=== PATIENT | male | born 1985 | race Two or more races ===

== ENCOUNTER → 2024-10-06 | Outpatient (CLI) | payer OTHER, MEDICAID ==
[~2024-10-06] VITALS: Ht 182.9 cm; Wt 125.6 kg
[2024-10-06] VITALS (7 sets, daily range): BP systolic 127–138; BP diastolic 92–106; PULSE 77–91; RESP 15–20; TEMP 98; O2SAT 95–100
[~2024-10-06] MED LIST: AMIO200T33 PO; AMLO1TAB22 PO; ATOR-507 PO; CARV6.2551 PO; HEPARIN SODIUM (PORCINE) 5000 UNITS/ML 1ML VIAL ONE; HYDR-4798 PO; LIDOCAINE 2%HCL (LOCAL ANESTH.) INJ 20ML MDV ONE; MIDAZOLAM HCL 2MG/2ML 2ml VIAL (1mg/ml) ONE; SUCR5CHW PO; TORS20TA19 PO; ceFAZolin 1GM/50ML 50 ML IV ONE; fentaNYL CITRATE 100 MCG/2 ML VL ONE
[2024-10-06] MEDS: CLINDAMYCIN 600MG IV 50 ML IV ONE ×2 (11:08→11:09)
--- NOTE | 2024-10-06 14:17 | DVH ---
XY Insertion of Venous Cath, HISTORY: ANIA CATH PL PROCEDURE: Informed consent was obtained. The patient was placed supine on the interventional table. [employer] film was obtained. Time out was performed. Moderate sedation was administered. The right neck b ase and upper chest were prepped with chlorhexidine which was allowed to dry and draped in the usual sterile fashion. The skin and the soft tissues of the right upper chest were infiltrated with 1% Lido norman . A stiff Glidewire was passed through the existing hemodialysis catheter into the IVC. The hemodialysi s catheter was removed over the wire after manual dissection around the catheter cuff, and manual pre ssure was held over the right internal jugular vein. A new 14.5 Mongolian x 23 cm hemodialysis catheter was introduced over the wire and through the venotomy and into the right atrium. The wire was remov ed. The catheter tip position was confirmed with fluoroscopy. There was satisfactory flow. The cathet er lumen was flushed with saline heparin was left indwelling in the catheter. A post-procedure image of the chest was obtained. The catheter was sutured at the skin surface and secured. No immediate co mplication was identified. DAP 69 FLUOROSCOPY TIME: 0.8 minutes . SEDATION: Dr. Vikram Monzon was personally responsible for the administration of moderate sedation during the procedure performed, including the use of an independent trained observer who had no other duties during the procedure. The drugs utilized were IV fentanyl and versed (see nursing log for details). The total time of supervision by the attending physician was approximately 45 minutes. FINDINGS: Post procedure image demonstrates smooth course of the hemodialysis catheter in the right upper chest, with the tip in the right atrium. IMPRESSION: Successful exchange of a 14.5 Fr x 23 cm tunneled hemodialysis catheter. Old catheter tip collected and sent to laboratory for culture analysis.
== END | disposition home or self-care (01) ==
LOC: CATH 09:13 → EDSTATUS 13:21
PROVIDERS: ATTEND Radiology Diagnostic Radiology
DX: Z49.01 Encounter for fitting and adjustment of extracorporeal dialysis catheter (principal); N18.6 End stage renal disease; Z88.0 Allergy status to penicillin; Z88.1 Allergy status to other antibiotic agents
CPT/HCPCS: 36581; 77001; 87205; C1769; J0690; J1644; J2250; J3010; J3490; J7040; 99152; 99153